=== PATIENT | female | born 1955 | race Caucasian/White ===

== ENCOUNTER 2018-10-06 07:59 | Outpatient (CLI) | payer MEDICAID ==
[~2018-10-06 07:59] MED LIST: REGADENOSON 0.4 MG/5 ML SYRINGE ONE
== END 2018-10-06 23:59 | disposition home or self-care (01) ==
LOC: CFH 07:59
PROVIDERS: ATTEND Nurse Practitioner
DX: M25.512 Pain in left shoulder (principal)
CPT/HCPCS: 78452; 93017; A9502; J2785